=== PATIENT | female | born 1995 | race Two or more races ===

== ENCOUNTER 2016-08-05 08:45 | Emergency (ER) | payer OTHER ==
--- NOTE | 2016-08-05 09:09 | UCPHY ---
H & P Time Seen by Provider: 08/05/16 08:47 Patient Type: New HPI/ROS: 21-year-old female presents complaining of urinary frequency and burning that began this morning she states she gets urinary tract infections frequently. No fevers no chills no back pain no nausea no vomiting no diarrhea. Review of systems General no fever no chills no weakness HEENT no eye pain no eye discharge. No eye redness, no sore throat Respiratory no cough, no shortness of breath Cardiac no chest pain, no peripheral edema GI no abdominal pain, no diarrhea, no constipation, no nausea, no vomiting no flank pain, no hematuria, positive dysuria Musculoskeletal no myalgias, no joint pain Heme no easy bruising, no easy bleeding Endo no polyuria, no polydipsia Skin no rashes, no pruritus Neuro no syncope, no dizziness, no headaches Psych is no suicidal ideation, no homicidal ideation Past Medical/Surgical History: UTI Social History: College student in [employer] At: [employer] Smoking Status: Never smoked Physical Exam: 21-year-old female Female alert and oriented in no acute distress nontoxic appearance, afebrile Atraumatic normocephalic Neck supple Lungs clear to auscultation bilaterally Heart regular rate and rhythm Abdomen normoactive bowel sounds soft mild suprapubic tenderness no guarding no rebound Back no CVA tenderness Extremities no cyanosis clubbing or edema Skin no rash Constitutional: Initial Vital Signs Temperature (C) 36.9 C 08/05/16 09:11 Heart Rate 95 08/05/16 09:11 Respiratory Rate 14 08/05/16 09:11 Blood Pressure 102/73 08/05/16 09:11 O2 Sat (%) 95 08/05/16 09:11 O2 Delivery Mode Room Air Allergies/Adverse Reactions: sulfamethoxazole [From Bactrim] Allergy (Verified 08/05/16 09:33) trimethoprim [From Bactrim] Allergy (Verified 08/05/16 09:33) Home Medications: Medication Instructions Recorded Cephalexin 500 mg PO BID #14 tablet 08/05/16 Phenazopyridine HCl 200 mg PO TID #6 tab 08/05/16 [Phenazopyridine] Medical Decision Making ED Course/Re-evaluation: Patient seen and evaluated for dysuria Urinalysis positive for urinary tract infection Impression UTI Plan Cephalexin, phenazopyridine - Data Points Laboratory Results: 08/05/16 09:00 Urine Color YELLOW Urine Appearance CLOUDY Urine pH 6.5 (5.0-7.5) Ur Specific [place] <= 1.005 (1.002-1.030) Urine Protein NEGATIVE (NEGATIVE) Urine Ketones NEGATIVE (NEGATIVE) Urine Blood 3+ H (NEGATIVE) Urine Nitrate NEGATIVE (NEGATIVE) Urine Bilirubin NEGATIVE (NEGATIVE) Urine Urobilinogen 0.2 EU (0.2-1.0) Ur Leukocyte Esterase 2+ H (NEGATIVE) Urine RBC 50-182 H /hpf (0-3) Urine WBC >182 H /hpf (0-3) Ur Epithelial Cells TRACE /lpf (NONE-1+) Amorphous Sediment TRACE /hpf (NONE-1+) Urine Bacteria TRACE H /hpf (NONE SEEN) Urine Glucose NEGATIVE (NEGATIVE) Departure - Departure Disposition: Home, Routine, Self-Care Clinical Impression: Urinary tract infection Condition: Good Instructions: Urinary Tract Infection in Women (ED) Referrals: OUT OF STATE,. [Primary Care Provider] - As per Instructions Prescriptions: Cephalexin 500 mg PO BID #14 tablet Phenazopyridine HCl [Phenazopyridine] 200 mg PO TID #6 tab - PQRS PQRS Measurement: na
[2016-08-05 09:12] VITALS: BP 102/73; PULSE 95; RESP 14; TEMP 98.4; O2SAT 95
[2016-08-05 09:20] LABS: COLOR YELLOW; LEUKOCYTE ESTERASE,URINE 2+ (NEGATIVE); NITRITE,URINE NEGATIVE (NEGATIVE); PH,URINE 6.5 (5.0-7.5)
[2016-08-05 09:35] LABS: AMORPHOUS TRACE /hpf (NONE-1+); BACTERIA TRACE /hpf (NONE SEEN); RBC,URINE 50-182 /hpf (0-3); WBC,URINE >182 /hpf (0-3)
== END 2016-08-05 09:41 | disposition home or self-care (01) ==
LOC: CED 08:45
DX: N39.0 Urinary tract infection, site not specified (principal); Z87.440 Personal history of urinary (tract) infections
CPT/HCPCS: 81003-PO; 81015-PO; G0463-PO